=== PATIENT | female | born 1950 | race Caucasian/White ===

== ENCOUNTER → 2021-01-22 | Outpatient (CLI) | payer MEDICARE, OTHER ==
[~2021-01-22] MED LIST: ATOR40TA59 PO; BIOT5000 PO; CETI10TA74 PO; CHOL5000 PO; DICL75TA PO; EMPA25TA PO; HYDR12.58 PO; IOHEXOL 180 MG/ML 10 ML VIAL. ONE; LEVO112C3 PO; LISI1TAB37 PO; METF500T16 PO; PANT40TA77 PO; PIOG30TA41 PO; methylPREDNISolone ACETATE 80 MG/ML VIAL. ONE
--- NOTE | 2021-01-22 12:26 | PDOC1 ---
INITIAL PAIN CONSULT DATE OF SERVICE: DOS: DATE: 01/22/21 TIME: 12:21 CHIEF COMPLAINT: Chief Complaint: Low back and left lower extremity pain HISTORY OF PRESENT ILLNESS: 70-year-old female presents with history of pain low back left lower extremity for about 3 years now worsening over the past 6 months without any specific injury or accident that she is aware but is been getting worse with walking standing changing positions sitting for prolonged periods with pain across the low back and the left lower extremity now radiating in the posterior gluteus posterior thigh posterior calf on the left side patient reports has had low back pain on and off for many years but now it is getting in the left leg and, more severe in the back as well as the leg patient has tried physical therapy in the past also doing exercise currently daily is walking but without significant decrease in pain. Patient reports awakens her from sleep intermittently but about 3 times a night does not affect her bowel bladder control but does affect her ability to walk she has to sit down about every 15 to 20 minutes when she is standing or walking to decrease the pain. Patient rates her disability rating 0-10 10 me the worst is a 7 with family muscles and recreation 5 with social activity to with occupation to with self-care and fourth life support activities. Patient have an MRI scan lumbar spine showing L5-S1 disc base narrowing with diffuse bulging annulus and a focal right paracentral disc protrusion narrowing the right lateral recess with mass-effect upon the right S1 nerve root. Patient reports no complete motor loss but significant weakness of the left lower extremity with ambulation and standing. PAST MEDICAL HISTORY: PMH: Hypertension, type 2 diabetes, hearing loss, arthritis, colon cancer PREVIOUS SURGERIES: Past Surgical Hx: Colon resection 2010, right ankle surgery, right wrist surgery CURRENT MEDICATIONS: Current Meds: Active Scripts Medications Dose Route/Sig Max Daily Dose Days Date Category Dose Instructions Zyrtec (Cetirizine Hcl) 10 Mg Tablet 1 Tab PO DAILY 01/22/21 Reported Vitamin D3 (Vitamin D) 125 Mcg Capsule 1,000 Mcg PO DAILY 01/22/21 Reported 5,000 UNITS = 125 MCG Biotin 5,000 Mcg Tab.rapdis 2 Tab PO DAILY 30 01/22/21 Reported Pantoprazole Sodium (Pantoprazole Sodium) 40 Mg Tablet.dr 40 Mg PO DAILYAC 01/22/21 Reported Actos (Pioglitazone Hcl) 30 Mg Tablet 30 Mg PO DAILY 01/22/21 Reported Metformin Hcl 500 Mg Tablet 500 Mg PO BIDWMEALS 01/22/21 Reported Jardiance (Empagliflozin) 25 Mg Tablet 25 Mg PO DAILY 01/22/21 Reported Lisinopril-Hctz 20-12.5 Mg Tab (Lisinopril/Hydrochlorothiazide) 1 Each Tablet 1 Tab PO BID 01/22/21 Reported Levothyroxine (Levothyroxine Sodium) 112 Mcg Capsule 112 Mcg PO DAILY 01/22/21 Reported Hydrochlorothiazide Tablet (Hydrochlorothiazide) 12.5 Mg Tablet 12.5 Mg PO DAILY 01/22/21 Reported Diclofenac Sodium 75 Mg Tablet.dr 1 Tab PO BID 01/22/21 Reported Atorvastatin Calcium 40 Mg Tablet 1 Tab PO DAILY 01/22/21 Reported FAMILY HISTORY: Family Hx: Arthritis, diabetes, cancers SOCIAL HISTORY: Social Hx: Patient is under alcohol does not smoke says any illegal illicit or recreational drugs is single lives locally in [facility] he works as a agency legal counsel REVIEW OF SYSTEMS: ROS: Positive for those items mentioned in history of present illness, all systems are reviewed, otherwise negative ,and are complete full and well-documented on patient's chart. PHYSICAL EXAM: VS: Blood pressure is 156/83 pulse 69 respirations 18 temperature 97.90 Fahrenheit height is 5 feet 6 inches weight is 205 pounds PE: PHYSICAL EXAMINATION: GENERAL: The patient is awake, alert, oriented, appropriate, very pleasant in demeanor HEENT: Shows normocephalic, atraumatic. Extraocular movements are intact and symmetrical. Oral cavity: Mucous membranes moist and pink. Dentition is inta ct. NECK: Shows anterior throat supple without palpable lymphadenopathy noted. Swallow reflex symmetrical. CHEST: Shows normal on inspection. Breath sounds are clear bilaterally, distant no rales rhonchi or wheezes auscultated. HEART: Shows S1, S2 clear. No murmurs auscultated. ABDOMEN: Soft, nontender, nondistended, obese. No palpable organomegaly is noted. No rebound or guarding demonstrated. BACK: Shows spine grossly in the midline. Normal-appearing cervical lordotic curvature. There is increased thoracic kyphosis, some minor flattening of the lumbar lordotic curvature. Lumbar paraspinous muscles show symmetrical on inspe ction, on palpation shows some moderate tenderness diffusely throughout the upper, middle and lower distribution of the paraspinous muscles bilaterally and also into the lower thoracic paraspinous musculature, firm and tender, but without specific trigger points, without radiation of pain. The patient has good rotational motion of the lumbar spine, both laterally as well as extension and flexion without significant difficulty. No tenderness over the spinous processes, sacrum or sacroiliac regions. EXTREMITIES: Lower extremities show deep tendon reflexes 2+ in the patellar and tendo calcaneus tendons. Motor exam is 5 on a scale of 5 with right dorsiflexion, extension, quadriceps and hamstring flexion and 4/5 on the left. Peripheral pulses are 1+ posterior tibial. No peripheral edema is noted bilaterally. Lower extremities are warm and dry to touch, equal in color and appearance. Straight leg raise noted to be negative bilaterally. Gaenslen's and Krunal's maneuvers are negative bilaterally as well. The patient is able to stand, stand on her toes that significant difficulty loss of balance walks with a slight favoring gait does appear to favor the left lower extremity slightly with a short walk in the office today does not use any assistive device such as canes or walker to ambulate. SKIN: Shows warm and dry, good turgor. No edema. No sores, rashes or bruising throughout. IMPRESSION: Impression: 70-year-old female with 3-year history of low back pain now 6 months of inc reasing pain left lower extremity and radicular fashion. MRI scan lumbar spine as noted Hypertension Arthritis Type 2 diabetes Colon cancer history Plan: Options were discussed with the patient including conservative medical management physical therapies interventional techniques. Patient would like to pursue interventional techniques. We discussed a lumbar epidural steroid inje ction using description as well as anatomical models described the procedure. Risks were discussed including but not limited to: Bleeding, infection, possibility of epidural hematoma and subsequent neurological compromise, dural puncture, headaches, spinal cord and/or nerve damage, side effects of steroid medication, and poor results regarding pain control. Patient understands and wished to proceed. Patient will return to the clinic in approximate 2 weeks for follow-up, was counseled as return appointment activity level and side effects be aware. Procedure is lumbar epidural steroid injection under local anesthetic using sterile prep and drape at the L5-S1 level using C-arm fluoroscopic guidance in both AP and lateral views medications injected is 120 mg Depo-Medrol +10mL preservative-free normal saline and 2 mL contrast- condition at discharge is stable patient tolerated procedure well had no complications. LUIS ALFREDO SWENSON MD Jan 22, 2021 12:26
--- NOTE | 2021-01-22 12:27 | PDOC4 ---
Procedure Note: ICD 10 Code: ICD 10 Code: M 54.17 M 51.87 M 48.07 Procedure Note: Patient was consented for lumbar epidural steroid injection with fluoroscopic guidance. Risks were discussed including but not limited to: Bleeding, infection, possibility of epidural hematoma and subsequent neurological compromise, dural puncture, headaches, spinal cord and/or nerve damage, side effects of steroid medication, and poor results regarding pain control. Patient understands and wished to proceed. Procedure is lumbar epidural steroid injection under local anesthetic using s terile prep and drape at the L5-S1 level using C-arm fluoroscopic guidance in both AP and lateral views medications injected is 120 mg Depo-Medrol +10mL preservative-free normal saline and 2 mL contrast- condition at discharge is stable patient tolerated procedure well had no complications. LUIS ALFREDO SWENSON MD Jan 22, 2021 12:27
== END | disposition home or self-care (01) ==
LOC: PNCL 08:10
PROVIDERS: ATTEND Anesthesiology
DX: M51.17 Intervertebral disc disorders with radiculopathy, lumbosacral region (principal); M48.07 Spinal stenosis, lumbosacral region; M54.5 Low back pain; M79.605 Pain in left leg; I10 Essential (primary) hypertension; E11.9 Type 2 diabetes mellitus without complications; M19.90 Unspecified osteoarthritis, unspecified site; Z85.038 Personal history of other malignant neoplasm of large intestine; Z79.899 Other long term (current) drug therapy; Z98.890 Other specified postprocedural states
CPT/HCPCS: 62323; G0463; J1040; Q9965

== ENCOUNTER → 2021-02-05 | Outpatient (CLI) | payer MEDICARE, OTHER ==
--- NOTE | 2021-02-05 08:55 | PDOC ---
Progress Note - Pain Clinic Date of Service: DOS: DATE: 02/05/21 TIME: 08:52 Diagnosis: Dx: Lumbar radiculopathy with lumbar degenerative disease lumbar spinal stenosis History or Present Illness: HPI: 70-year-old female returns for follow-up status post lumbar epidural steroid traction x1. Patient reports about 70% improved initially now producing to about 50% in the low back and left lower extremity posterior gluteus posterior thigh posterior calf patient reports doing much better reports a new finding of some hot flashes since her last injection and increased urinary frequency otherwise leg is doing much better on the left side patient reports still waking her from sleep over the past few days but initially was doing much better with distance walking doing household activities work activities try with greater ease and comfort sleeping much better again now is beginning to return patient rates her pain a 7 on scale 10 is worse over the past week for an average to its least is a 4 today patient report is aching and shooting on and off in intensity again better with sitting or laying down but worse with walking standing changing positions. Patient reports no bowel or bladder incontinence. Physical Exam: VS: Blood pressure is 147/79 pulse 63 respirations 16 temperature 98.1 F weight is 204 pounds. PE: PHYSICAL EXAMINATION: GENERAL: The patient is awake, alert, oriented, appropriate, very pleasant in demeanor HEENT: Shows normocephalic, atraumatic. Extraocular movements are intact and symmetrical. Oral cavity: Mucous membranes moist and pink. Dentition is intact. NECK: Shows anterior throat supple without palpable lymphadenopathy noted. Swallow reflex symmetrical. CHEST: Shows normal on inspection. Breath sounds are clear bilaterally, no rales or rhonchi. HEART: Shows S1, S2 clear. No murmurs auscultated. ABDOMEN: Soft, nontender, nondistended, obese. No palpable organomegaly is noted. BACK: Shows spine grossly in the midline. Normal-appearing cervical lordotic c urvature. There is increased thoracic kyphosis, some mild flattening of the lumbar lordotic curvature. Lumbar paraspinous muscles show symmetrical on inspection, on palpation shows some moderate tenderness diffusely throughout the upper, middle and lower distribution of the paraspinous muscles, but without specific trigger points, without radiation of pain. The patient has good rotational motion of the lumbar spine, both laterally as well as extension and flexion without significant difficulty. No tenderness over the spinous processes, sacrum or sacroiliac regions. EXTREMITIES: Lower extremities show deep tendon reflexes 2 in the patellar and tendo calcaneus tendons. Motor exam is 5 on a scale of 5 with right dorsiflexion, extension, quadriceps and hamstring flexion and 4/5 on the left. Peripheral pulses are 1+ posterior tibial. No peripheral edema is noted bilaterally. Lower extremities are warm and dry to touch, equal in color and appearance. SKIN: Shows warm and dry, good turgor. No edema. No sores, rashes or bruising throughout. Procedure: Procedure: Options were discussed with the patient. Patient chart reviews her current medication regimen updated current review of systems updated today as well. We will proceed with a lumbar epidural steroid injection today with fluoroscopic guidance. Risks were discussed including but not limited to: Bleeding, infection, possibility of epidural hematoma and subsequent neurological compromise, dural puncture, headaches, spinal cord and/or nerve damage, side effects of steroid medication, and poor results regarding pain control. Patient understands and wished to proceed. Patient will return to clinic in approximate 2 weeks for follow-up, was counseled return appointment, activity level, and side effect to be aware of. Medication Injected: Med Injected: Procedure is lumbar epidural steroid injection under local anesthetic using sterile prep and drape at the L5-S1 level using C-arm fluoroscopic guidance in both AP and lateral views medications injected is 120 mg Depo-Medrol +10mL preservative-free normal saline and 2 mL contrast- condition at discharge is stable patient tolerated procedure well had no complications. Condition at Discharge: Condition at Discharge: Condition at discharge is stable, patient tolerated procedure well and had no complications. LUIS ALFREDO SWENSON MD Feb 05, 2021 08:55
--- NOTE | 2021-02-05 08:56 | PDOC4 ---
Procedure Note: ICD 10 Code: ICD 10 Code: M54.17 M4 8.07 Five 1.87 Procedure Note: Patient is consented for lumbar epidural steroid injection with fluoroscopic guidance. Risks were discussed including but not limited to: Bleeding, infection, possibility of epidural hematoma and subsequent neurological compromise, dural puncture, headaches, spinal cord and/or nerve damage, side effects of steroid medication, and poor results regarding pain control. Patient understands and wished to proceed. Procedure is lumbar epidural steroid injection under local anesthetic using s terile prep and drape at the L5 S1 level using C-arm fluoroscopic guidance in both AP and lateral views medications injected is 120 mg Depo-Medrol +10mL preservative-free normal saline and 2 mL contrast- condition at discharge is stable patient tolerated procedure well had no complications. LUIS ALFREDO SWENSON MD Feb 05, 2021 08:55
== END | disposition home or self-care (01) ==
LOC: PNCL 08:22
PROVIDERS: ATTEND Anesthesiology
DX: M51.16 Intervertebral disc disorders with radiculopathy, lumbar region (principal); M48.061 Spinal stenosis, lumbar region without neurogenic claudication; Z79.84 Long term (current) use of oral hypoglycemic drugs; Z79.899 Other long term (current) drug therapy; Z98.890 Other specified postprocedural states
CPT/HCPCS: 62323; J1040; Q9965

== ENCOUNTER → 2021-02-27 | Outpatient (CLI) | payer MEDICARE, OTHER ==
[~2021-02-27] MED LIST changes: +methylPREDNISolone ACETATE 40 MG/ML VIAL. ONE
--- NOTE | 2021-02-27 08:42 | PDOC ---
Progress Note - Pain Clinic Date of Service: DOS: DATE: 02/27/21 TIME: 08:39 Diagnosis: Dx: Lumbar radiculopathy with lumbar degenerative disease and lumbar spinal stenosis History or Present Illness: HPI: 70-year-old female returns for follow-up status post lumbar epidural steroid injection patient reports about 80% improved initially still about 20% improved over the past several weeks patient reports the pain is returning in the low back left lower extremity posterior gluteus posterior thigh posterior calf worse with walking standing and laying on her stomach as well as her left side patient reports a 6 on scale 10 is worse over the past week for an average to its least is a 4 today patient reports no loss of motor function no bowel or bladder incontinence but some significant fatigability of the left lower extremity with walking and standing patient reports otherwise initially she is doing much better not awaken her from sleep at night distance walking doing household activities work activities travel with greater ease and comfort all the pain returning now in the left lower extremity. Patient reports no other complaints. Physical Exam: VS: Blood pressure is 134/77 pulse 71 respirations 18 temperature is 90.5 F height 5 feet 6 inches weight is 204 point PE: PHYSICAL EXAMINATION: GENERAL: The patient is awake, alert, oriented, appropriate, very pleasant in demeanor HEENT: Shows normocephalic, atraumatic. Extraocular movements are intact and symmetrical. Oral cavity: Mucous membranes moist and pink NECK: Shows anterior throat supple without palpable lymphadenopathy noted. Swallow reflex symmetrical. CHEST: Shows normal on inspection. Breath sounds are clear bilaterally, distant but no rales or rhonchi auscultated. HEART: Shows S1, S2 clear. No murmurs auscultated. ABDOMEN: Soft, nontender, nondistended, obese. No palpable organomegaly is noted. BACK: Shows spine grossly in the midline. Normal-appearing cervical lordotic curvature. There is increased thoracic kyphosis, some flattening of the lumbar lordotic curvature. Lumbar paraspinous muscles show symmetrical on inspection, on palpation shows some moderate tenderness diffusely throughout the upper, middle and lower distribution of the paraspinous muscles without specific trigger points, without radiation of pain. The patient has good rotational motion of the lumbar spine, both laterally as well as extension and flexion without significant difficulty. EXTREMITIES: Lower extremities show deep tendon reflexes 2+ in the patellar and tendo calcaneus tendons. Motor exam is 5 on a scale of 5 with right dorsiflexion, extension, quadriceps and hamstring flexion and 4/5 on the left. Peripheral pulses are 1+ posterior tibial. No peripheral edema is noted bilaterally. Lower extremities are warm and dry to touch, equal in color and appearance. SKIN: Shows warm and dry, good turgor. No edema. No sores, rashes or bruising throughout. Procedure: Procedure: Options were discussed with patient. Patient chart reviews her current medication regimen updated current review of systems updated today as well. We will proceed with a lumbar epidural steroid injection today with fluoroscopic guidance. Risks were discussed including but not limited to: Bleeding, infection, possibility of epidural hematoma and subsequent neurological compromise, dural puncture, headaches, spinal cord and/or nerve damage, side effects of steroid medication, and poor results regarding pain control. Patient understands and wished to proceed. Patient return to clinic in approximate 2 weeks for follow-up, was counseled return appointment, typical, and side effect to be aware of. Also, will add new medication of gabapentin 100 mg nightly, patient was given instructions well side effects beware with the medication. Medication Injected: Med Injected: Procedure is lumbar epidural steroid injection under local anesthetic using sterile prep and drape at the L5-S1 level using C-arm fluoroscopic guidance in both AP and lateral views medications injected is 120 mg Depo-Medrol +10mL preservative-free normal saline and 2 mL contrast- condition at discharge is stable patient tolerated procedure well had no complications. Condition at Discharge: Condition at Discharge: Condition at discharge stable, paced tolerated procedure well and had no com plications. LUIS ALFREDO SWENSON MD Feb 27, 2021 08:42
--- NOTE | 2021-02-27 08:43 | PDOC4 ---
Procedure Note: ICD 10 Code: ICD 10 Code: M54.17 M4 8.07 M51.87 Procedure Note: Patient was consented for lumbar epidural steroid injection with fluoroscopic guidance. Risks were discussed including but not limited to: Bleeding, infection, possibility of epidural hematoma and subsequent neurological compromise, dural puncture, headaches, spinal cord and/or nerve damage, side effects of steroid medication, and poor results regarding pain control. Patient understands and wished to proceed. Procedure is lumbar epidural steroid injection under local anesthetic using soraida rile prep and drape at the L5-S1 level using C-arm fluoroscopic guidance in both AP and lateral views medications injected is 120 mg Depo-Medrol +10mL preservative-free normal saline and 2 mL contrast- condition at discharge is stable patient tolerated procedure well had no complications. LUIS ALFREDO SWENSON MD Feb 27, 2021 08:43
== END | disposition home or self-care (01) ==
LOC: PNCL 08:05
PROVIDERS: ATTEND Anesthesiology
DX: M51.16 Intervertebral disc disorders with radiculopathy, lumbar region (principal); M48.061 Spinal stenosis, lumbar region without neurogenic claudication; Z79.84 Long term (current) use of oral hypoglycemic drugs; Z79.899 Other long term (current) drug therapy; Z88.0 Allergy status to penicillin
CPT/HCPCS: 62323; J1030; J1040; Q9965